=== PATIENT | male | born 1960 | race Caucasian/White ===

== ENCOUNTER 2021-11-26 16:03 | Emergency (ER) | payer OTHER ==
[~2021-11-26] VITALS: Ht 170.2 cm; Wt 117.9 kg
[2021-11-26 17:14] LABS: HEMOGLOBIN 14.9 gm/dl (14.0-17.5); RED BLOOD COUNT 4.8 M/UL (4.20-5.50); WHITE BLOOD COUNT 10.2 K/UL (4.5-11.0)
[2021-11-26 18:08] LABS: BUN/CREATININE RATIO 20 (0-10)
[2021-11-26 21:25] LABS: HEMOGLOBIN 14.7 gm/dl (14.0-17.5); RED BLOOD COUNT 4.68 M/UL (4.20-5.50); WHITE BLOOD COUNT 12.6 K/UL (4.5-11.0)
== END 2021-11-26 23:30 | disposition short-term general hospital (02) ==
LOC: ER1 16:03
PROVIDERS: Emergency Medicine; Physician Assistant
DX: K62.5 Hemorrhage of anus and rectum (principal); Z20.822 Contact with and (suspected) exposure to COVID-19
CPT/HCPCS: 0240U; 36430; 80053; 82272; 85025; 85610; 85730; 86850; 86900; 86901; 86920; 99284; C9113; P9016; Q9967